=== PATIENT | male | born 1965 | race African-American/Black ===

== ENCOUNTER 2017-10-19 07:27 | Emergency (ER) | payer MEDICAID ==
[~2017-10-19] VITALS: Ht 188 cm; Wt 75.0 kg
[2017-10-19] MEDS ORDERED: KETOROLAC 60MG/2ML VIAL IM STA (10:57)
[2017-10-19 11:13] VITALS: BP 126/72
== END 2017-10-19 12:51 | disposition left against medical advice (07) ==
LOC: ER 08:39
DX: S49.81XA Other specified injuries of right shoulder and upper arm, initial encounter (principal); X50.9XXA Other and unspecified overexertion or strenuous movements or postures, initial encounter; Y93.89 Activity, other specified; Y92.018 Other place in single-family (private) house as the place of occurrence of the external cause
CPT/HCPCS: 96372; 99283; J1885; A4565

== ENCOUNTER 2017-10-23 09:04 | Emergency (ER) | payer MEDICAID ==
[~2017-10-23] VITALS: Ht 175.3 cm; Wt 75.0 kg
[2017-10-23] MEDS ORDERED: ONDANSETRON HCL 4MG/2ML VIAL IV STA (14:46)
[2017-10-23] MEDS ORDERED: SODIUM CHLORIDE 0.9% 1,000 ML IV ONE (14:46)
[2017-10-23] MEDS ORDERED: KETOROLAC 30MG/ML VIAL IV STA (14:46)
[2017-10-23] MEDS ORDERED: FAMOTIDINE 20MG/2ML VIAL IV ONE (15:00)
[2017-10-23 15:09] LABS: CLARITY URINE CLEAR (CLEAR); COLOR URINE YELLOW (YELLOW); KETONES URINE NEGATIVE (NEGATIVE); LEUKOCYTE ESTERASE URINE NEGATIVE (NEGATIVE); NITRITE URINE NEGATIVE (NEGATIVE); OCCULT BLOOD URINE NEGATIVE (NEGATIVE); PH URINE 5.5 (4.5-8.0); PROTEIN URINE NEGATIVE (NEGATIVE); SPECIFIC GRAVITY URINE 1.028 (1.005-1.030); UROBILINOGEN URINE 0.2 E.U./dL (0.2-1.0)
[2017-10-23 15:09] LABS: HEMATOCRIT. 41.9 % (42.0-52.0); HEMOGLOBIN. 14.1 g/dL (14.0-18.0); MEAN CORPUSCULAR VOLUME 98.2 fL (80.0-94.0); MEAN PLATELET VOLUME 9.9 fl (7.4-10.4); PLATELET 149 x1000/uL (130-400); RED BLOOD CELL COUNT 4.27 mill/uL (4.7-6.1); RED CELL DISTRIBUTION WIDTH 13.8 % (11.6-14.6)
[2017-10-23 15:21] LABS: CHLORIDE 103 mEq/L (98-107)
[2017-10-23 15:54] LABS: PLATELET ESTIMATE NORMAL
[2017-10-23 18:02] VITALS: BP 100/60
== END 2017-10-23 18:06 | disposition home or self-care (01) ==
LOC: ER 10:14
DX: J06.9 Acute upper respiratory infection, unspecified (principal); R11.2 Nausea with vomiting, unspecified; R19.7 Diarrhea, unspecified; F17.200 Nicotine dependence, unspecified, uncomplicated; R56.9 Unspecified convulsions; R36.9 Urethral discharge, unspecified; R30.0 Dysuria; R31.9 Hematuria, unspecified; R10.30 Lower abdominal pain, unspecified
CPT/HCPCS: 36415; 71045; 74176; 80053; 81003; 85025; 87186; 87804; 96361; 96374; 96375; 99285; J1885; J2405; J3490; J7030; Z7610